=== PATIENT | male | born 1985 | race Caucasian/White ===

== ENCOUNTER 2017-03-15 19:55 | Emergency (ER) | payer SELFPAY ==
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
--- NOTE | 2017-03-15 22:37 | ED MED RECONCILIATION SUMMARY ---
Patient: FAIZA DICKINSON M Medication Reconciliation Report [facility] VisitID: [id number] [address] [place] [address] 31y, M Registration Date/Time: 03/15/2017 Weight: 81.6 kg Height/Length: 71 in. BMI: 25.1 ALLERGIES: None The patient's Home Medications are listed below: THE FOLLOWING MEDICATIONS NEED TO BE RECONCILED: Ibuprofen Oral The source(s) of the original Home Medication information: patient The following Medications were given to the patient in the Emergency Department: None. The following Medications were prescribed to the patient: None.
--- NOTE | 2017-03-15 22:37 | ED MAR SUMMARY ---
..... Medication Administration Record [facility] [address] [place], [place] [id number] Patient: FAIZA DICKINSON M Visit ID: [id number] 31y, M Weight: 81.6 kg Height/Length: 71 in BMI: 25.1 ALLERGIES: None
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
--- NOTE | 2017-03-15 22:37 | ED MED RECONCILIATION SUMMARY ---
Patient: FAIZA DICKINSON M Medication Reconciliation Report [facility] VisitID: [id number] [address] [place] [address] 31y, M Registration Date/Time: 03/15/2017 Weight: 81.6 kg Height/Length: 71 in. BMI: 25.1 ALLERGIES: None The patient's Home Medications are listed below: THE FOLLOWING MEDICATIONS NEED TO BE RECONCILED: Ibuprofen Oral The source(s) of the original Home Medication information: patient The following Medications were given to the patient in the Emergency Department: None. The following Medications were prescribed to the patient: None.
--- NOTE | 2017-03-15 22:37 | ED MAR SUMMARY ---
..... Medication Administration Record [facility] [address] [place], [place] [id number] Patient: FAIZA DICKINSON M Visit ID: [id number] 31y, M Weight: 81.6 kg Height/Length: 71 in BMI: 25.1 ALLERGIES: None
== END 2017-03-15 20:21 ==
LOC: ED SRH 19:55
DX: Z04.1 Encounter for examination and observation following transport accident (principal); V43.11XA Car passenger injured in collision with sport utility vehicle in nontraffic accident, initial encounter